=== PATIENT | male | born 1990 | race Caucasian/White ===

== ENCOUNTER 2022-11-27 19:38 | Emergency (ER) | payer OTHER ==
[~2022-11-27] VITALS: Ht 177.8 cm; Wt 110.1 kg
[2022-11-27 22:32] VITALS: BP 123/80; TEMP 98; O2SAT 99
== END 2022-11-27 22:33 | disposition home or self-care (01) ==
LOC: M ED 19:38
DX: S00.03XA Contusion of scalp, initial encounter (principal); W06.XXXA Fall from bed, initial encounter